=== PATIENT | female | born 1985 | race African-American/Black ===

== ENCOUNTER 2018-03-17 21:24 | Emergency (ER) | payer OTHER ==
[~2018-03-17] VITALS: Ht 152.4 cm; Wt 67.7 kg
[2018-03-17 21:28] VITALS: BP 124/80; TEMP 99
[2018-03-17] MEDS ORDERED: AMOXICILLIN 8751 TAB PO (22:57)
[2018-03-17 23:15] VITALS: PULSE 70
== END 2018-03-17 23:20 | disposition home or self-care (01) ==
LOC: COL.ER 21:24
DX: K04.7 Periapical abscess without sinus (principal); F17.210 Nicotine dependence, cigarettes, uncomplicated